=== PATIENT | female | born 1950 | race Hispanic/Latino ===

== ENCOUNTER → 2024-05-22 | Outpatient (CLI) | payer OTHER, MEDICARE ==
--- NOTE | 2024-05-23 08:52 | HMCIMG ---
ANKLE 2VWS LT REASON: LT ANKLE ARTHRITIS TECHNIQUE: 2 views were obtained. FINDINGS: There is moderate narrowing of the tibiotalar joint space. Subtalar joint space appears preserved. There are no visible fractures. Soft tissues appear unremarkable. IMPRESSION: 1. There is some narrowing of the tibiotalar joint space consistent with the history of arthritis.
--- NOTE | 2024-05-23 08:53 | HMCIMG ---
KNEE/PATELLA 1-2VWS RT REASON: RT KNEE PAIN TECHNIQUE: 2 views were obtained. FINDINGS: Joint space heights appear preserved. This includes the patellofemoral joint space. There is chondrocalcinosis of the menisci consistent with degenerative change. There are no focal osseous lesions. There is no evidence of joint effusion. Soft tissues appear normal. IMPRESSION: 1. 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
== END | disposition home or self-care (01) ==
LOC: RAH 16:13
PROVIDERS: ATTEND Internal Medicine
DX: M25.561 Pain in right knee (principal)
CPT/HCPCS: 73560; 73600